=== PATIENT | female | born 1985 | race Caucasian/White ===

== ENCOUNTER → 2025-01-13 09:11 | Outpatient (CLI) | payer OTHER, SELFPAY ==
[2025-01-13 12:22] LABS: Urine N gonorrhoeae NOT DETECTED
[2025-01-13 12:23] LABS: Urine Chlamydia NOT DETECTED
== END ==
PROVIDERS: PCP Family Medicine; Visit Provider Obstetrics & Gynecology
DX: Z11.3 Encounter for screening for infections with a predominantly sexual mode of transmission (principal)
CPT/HCPCS: 87491; 87591

== ENCOUNTER → 2025-01-13 09:30 | Outpatient (CLI) | payer OTHER, SELFPAY ==
[2025-01-13 10:14] LABS: Add Manual Diff / Slide Review NO; Hematocrit 40.5 % (36-46); Hemoglobin 13.9 g/dL (12.0-16.0); Lymphocytes Absolute Auto 1100 /uL (1100-4500); Mean Corpuscular HGB Conc 34.4 % (30-36); Mean Corpuscular Hemoglobin 31.4 PG (26-34); Mean Corpuscular Volume 91.0 fL (80-100); Platelet Count 299 X10^3/uL (150-400)
[2025-01-13 10:20] LABS: Hemoglobin A1C% w Est Avg Glu 4.8 % (4.0-6.0)
[2025-01-13 10:29] LABS: Alanine Aminotransferase 16 IU/L (<35); Albumin 4.5 g/dL (3.5-5.0); Albumin Globulin Ratio 1.7 (1.0-2.8); Alkaline Phosphatase 48 U/L (38-126); Blood Urea Nitrogen 12 mg/dL (7-17); Calcium 9.7 mg/dL (8.4-10.2); Carbon Dioxide 24 mmol/L (22-32); Chloride 101 mmol/L (98-107); Estimated Glomerular Filt Rate > 60 mL/min (>60); Globulin 2.7 g/dL (1.7-4.1); Glucose 81 mg/dL (70-99); HEMOLYSIS < 15 (0-50); Potassium 4.2 mmol/L (3.4-5.1); Sodium 133 mmol/L (137-145); Total Protein 7.2 g/dL (6.3-8.2)
[2025-01-13 10:58] LABS: Hepatitis B Surface Antigen NEGATIVE s/c (NEGATIVE)
[2025-01-13 11:02] LABS: TSH w/ Reflex to FT4 3.09 uIU/mL (0.47-4.68)
[2025-01-13 11:18] LABS: HIV 1 & 2 Ab/Ag 4th Gen Combo NEGATIVE (NEGATIVE); Hep C Virus Ab w/Reflex Quant NEGATIVE s/c (NEGATIVE)
== END ==
PROVIDERS: PCP Family Medicine; Referring Provider Obstetrics & Gynecology; Visit Provider Obstetrics & Gynecology
DX: O09.511 Supervision of elderly primigravida, first trimester (principal); O09.819 Supervision of pregnancy resulting from assisted reproductive technology, unspecified trimester; Z3A.09 9 weeks gestation of pregnancy; O09.811 Supervision of pregnancy resulting from assisted reproductive technology, first trimester; Z11.3 Encounter for screening for infections with a predominantly sexual mode of transmission
CPT/HCPCS: 36415; 80053; 80055; 83036; 84443; 86787; 86803; 86850; 86900; 86901; 87086; 87389; 87491; 87591

== ENCOUNTER → 2025-01-20 11:25 | Outpatient (CLI) | payer OTHER, SELFPAY ==
[2025-01-20 12:34] LABS: Natera Collection Specimen Collected
== END ==
PROVIDERS: PCP Family Medicine; Referring Provider Obstetrics & Gynecology; Visit Provider Obstetrics & Gynecology
DX: Z34.92 Encounter for supervision of normal pregnancy, unspecified, second trimester (principal)
CPT/HCPCS: 36415

== ENCOUNTER → 2025-03-10 08:26 | Outpatient (CLI) | payer OTHER, SELFPAY ==
[2025-03-14 19:36] LABS: Gest Age on Col Date 20.6 weeks (.); OSBR Risk 1IN 10000 (.)
== END ==
PROVIDERS: PCP Family Medicine; Referring Provider Obstetrics & Gynecology; Visit Provider Obstetrics & Gynecology
DX: Z36.0 Encounter for antenatal screening for chromosomal anomalies (principal)
CPT/HCPCS: 36415; 82105

== ENCOUNTER → 2025-05-05 09:00 | Outpatient (CLI) | payer OTHER, SELFPAY ==
[2025-05-05 11:14] LABS: Hematocrit 34.9 % (36-46); Hemoglobin 12.0 g/dL (12.0-16.0)
[2025-05-05 11:42] LABS: GTT (PREG) 1 Hour PP 50gm Dose 77 mg/dL (76-139)
== END ==
PROVIDERS: PCP Family Medicine; Referring Provider Family Medicine; Visit Provider Obstetrics & Gynecology
DX: Z13.1 Encounter for screening for diabetes mellitus (principal); Z13.0 Encounter for screening for diseases of the blood and blood-forming organs and certain disorders involving the immune mechanism
CPT/HCPCS: 36415; 82950; 85014; 85018